=== PATIENT | male | born 1960 | race Caucasian/White ===

== ENCOUNTER 2018-07-13 07:47 | Emergency (ER) | payer OTHER ==
--- NOTE | 2018-07-13 08:09 | EDPHY ---
H & P Stated Complaint: fall, L shoulder pain Time Seen by Provider: 07/13/18 08:01 HPI/ROS: CHIEF COMPLAINT: Fall at work, left shoulder pain HISTORY OF PRESENT ILLNESS: The patient presents the ED after he tripped over a chain at work. This resulted in a fall and an injury to his left shoulder. The patient reports pain with any attempted active range of motion. He denies any acute numbness or weakness. The patient denies any associated additional injury such is headache, neck pain, chest pain, difficulty breathing or other concerns. REVIEW OF SYSTEMS: A comprehensive 10 point review of systems is otherwise negative aside from elements mentioned in the history of present illness. Source: Patient Exam Limitations: No limitations - Personal History Current Tetanus/Diphtheria Vaccine: Unsure Current Tetanus Diphtheria and Acellular Pertussis (TDAP): Unsure - Medical/Surgical History Hx Asthma: No Hx Chronic Respiratory Disease: Yes Hx Diabetes: No Hx Cardiac Disease: No Hx Renal Disease: No Hx Cirrhosis: No Hx Alcoholism: No Hx HIV/AIDS: No Hx Splenectomy or Spleen Trauma: No Other PMH: COPD, gout, - Social History Smoking Status: Former smoker - Physical Exam Exam: General Appearance: Alert, no distress Head: Atraumatic Neck: Nontender, trachea midline Respiratory: No chest wall tender, no subcutaneous air, lungs clear bilaterally Cardiovascular: Regular rate and rhythm Abdomen: Abdomen is soft and nontender, pelvis stable Skin: No lacerations, No abrasion Back: No midline T/L/S pain Extremities: Tenderness to palpation over the left humeral head, no obvious step-off or deformity, no tenderness along the left clavicle. No tenderness or limited range of motion noted at the elbow, wrist or hand. Neurological: 5/5 strength, intact motor sensory function noted to the left upper extremity Constitutional: Initial Vital Signs Temperature (C) 37.2 C 07/13/18 07:52 Heart Rate 73 07/13/18 07:52 Respiratory Rate 16 07/13/18 07:52 Blood Pressure 142/95 H 07/13/18 07:52 O2 Sat (%) 92 07/13/18 07:52 O2 Delivery Mode Room Air Allergies/Adverse Reactions: No Known Allergies Allergy (Unverified 07/13/18 07:51) Home Medications: Medication Instructions Recorded Allopurinol 07/13/18 Trilogy 07/13/18 Medical Decision Making - Diagnostics Imaging Results: Left shoulder x-ray, three view: Images reviewed by myself. Impression: Negative for fracture, dislocation or other traumatic injury. ED Course/Re-evaluation: The patient presents to the ED for evaluation of a left shoulder injury after a fall at work. The patient did have tenderness to palpation over his proximal humerus. An x-ray demonstrates no evidence of an obvious fracture or dislocation. I did inform the patient deny cannot exclude the possibility of a soft tissue injury to the rotator cuff or labrum. The patient will be given a sling. He is advised to follow up with Orthopedic surgery or workman's Comp for any pain or decreased range of motion which persists past 2-3 days as additional workup may be indicated. Differential Diagnosis: Differential diagnosis considered includes shoulder fracture, sprain, dislocation Departure - Departure Disposition: Home, Routine, Self-Care Clinical Impression: Left shoulder strain Condition: Good Instructions: Musculoskeletal Pain (ED) Additional Instructions: 1. Your x-ray demonstrates no evidence of an obvious fracture dislocation. You could have a injury to her rotator cuff which would require further evaluation by an orthopedic surgeon. 2. Please wear sling for comfort. 3. Take Ibuprofen or Motrin 600 mg by mouth three times a day. 4. Please follow up with Orthopedic surgery or workman's comp for any persistent shoulder pain or limited range of motion past 2-3 days. No lifting with the the left arm until your symptoms have resolved. Dr. Candelaria is our on- call orthopedic surgeon and would be happy to see you in follow-up. You have been given his contact information. Referrals: Mat Candelaria MD [Medical Doctor] - As per Instructions
[2018-07-13 09:00] VITALS: BP 139/87
== END 2018-07-13 09:00 | disposition home or self-care (01) ==
DX: S43.402A Unspecified sprain of left shoulder joint, initial encounter (principal); W01.0XXA Fall on same level from slipping, tripping and stumbling without subsequent striking against object, initial encounter; Y99.0 Civilian activity done for income or pay